=== PATIENT | female | born 1960 | race Two or more races ===

== ENCOUNTER → 2020-11-20 | Outpatient (CLI) | payer BC | END | disposition home or self-care (01) | LOC: RAD 09:37 | PROVIDERS: ATTEND Internal Medicine Gastroenterology | DX: K21.9 Gastro-esophageal reflux disease without esophagitis (principal); K30 Functional dyspepsia; R68.81 Early satiety; G47.30 Sleep apnea, unspecified; I10 Essential (primary) hypertension; H91.93 Unspecified hearing loss, bilateral; Z78.0 Asymptomatic menopausal state; Z68.28 Body mass index [BMI] 28.0-28.9, adult | CPT/HCPCS: 78264; A9541 ==